=== PATIENT | female | born 1985 | race Caucasian/White ===

== ENCOUNTER 2023-06-28 17:08 | Emergency (ER) | payer OTHER, MEDICAID, SELFPAY ==
[2023-06-28 17:45] VITALS: BP 140/85; PULSE 104; RESP 18; TEMP 36.7; O2SAT 99; BMI 32.8
--- NOTE | 2023-06-28 18:09 | ED.GENADULT ---
HPI - General Adult <Bre Mott PA-C - Last Filed: 06/29/23 14:00> General Chief complaint: Hypertension Stated complaint: doesn't feel right, High Blood Pressure Time Seen by Provider: 06/28/23 17:58 Source: patient and family Mode of arrival: Wheelchair History of Present Illness HPI narrative: Patient is a 38-year-old female, currently vapes, with multiple medical problems who presents due to chief complaint of I don't feel right and concern for high blood pressure. Patient also complains of palpitations. She took 1 mg clonazepam prior to arrival in the emergency room. Feels like I am drunk but I am not. Complains of back pain worsened by a recent disability exam, a lot of poking and prodding. Reports a fall 2 days ago, states I am a high fall risk. Did not her hit her head. Also complains of left elbow pain, onset tonight, without preceding insult. No redness or swelling of the elbow per patient report. Patient reports medical history occluding TBI, sclerosis, scoliosis, arthritis, hearing impairment, pericarditis, asthma, PTSD. She is accompanied by her significant other. Related Data Allergies Allergy/AdvReac Type Severity Reaction Status Date / Time aspartame Allergy Seizure Verified 06/28/23 17:45 oxycodone Allergy Hallucinati Verified 06/28/23 17:45 ng soy Allergy Anaphylaxis Verified 06/28/23 17:45 sucralose Allergy Seizure Verified 06/28/23 17:45 Sulfa (Sulfonamide Allergy Anaphylaxis Verified 06/28/23 17:45 Antibiotics) topiramate [From Topamax] Allergy Seizure Verified 06/28/23 17:45 adhesive AdvReac skin Verified 06/28/23 17:45 irritation clindamycin AdvReac Hives Verified 06/28/23 17:45 codeine AdvReac Hives Verified 06/28/23 17:45 eszopiclone [From Lunesta] AdvReac Sleepwalkin Verified 06/28/23 17:45 g hydrocodone AdvReac Migraine Verified 06/28/23 17:45 latex AdvReac Hives Verified 06/28/23 17:45 Review of Systems <Bre Mott PA-C - Last Filed: 06/29/23 14:00> Review of Systems ROS Unobtainable: All systems reviewed & are unremarkable except as noted in HPI and below Patient History <Bre Mott PA-C - Last Filed: 06/29/23 14:00> Social History Smoking Status: Former smoker Smoking Status: Former smoker tobacco type: vaping Substance Use Type: does not use Exam <Bre Mott PA-C - Last Filed: 06/29/23 14:00> Narrative Exam Narrative: GENERAL: 38 year old patient appears stated age. Well-developed patient, in no acute distress. NEURO: Alert and oriented x3, flat affect, normal speech, normal cognition. CN's (II-XII) grossly intact,. No gross motor deficit, 5/5 strength throughout, no gross sensory loss, normal movement. HEAD: Atraumatic. Normocephalic. EYES: Pupils equal round and reactive. Extraocular motions intact. No scleral icterus. No injection or drainage. ENT: Nose without bleeding or purulent drainage. Airway patent. CARDIOVASCULAR: Regular rate and rhythm without murmurs, gallops, or rubs. RESPIRATORY: Clear to auscultation. Breath sounds equal bilaterally. No wheezes, rales, or rhonchi. EXTREMITIES: No edema or joint tenderness. BACK/SPINE: No midline tenderness, states pain over right thoracic spine and left low thoracic/high upper lumbar spine SKIN: No rash or erythema of visible areas Initial Vital Signs Initial Vital Signs: Vital Signs Temperature 98.1 F 06/28/23 17:45 Pulse Rate 104 H 06/28/23 17:45 Respiratory Rate 18 06/28/23 17:45 Blood Pressure 140/85 06/28/23 17:45 Pulse Oximetry 99 06/28/23 17:45 Oxygen Delivery Method Room Air 06/28/23 17:45 <Shruthi Duron MD - Last Filed: 06/29/23 18:51> Initial Vital Signs Initial Vital Signs: Vital Signs Temperature 98.1 F 06/28/23 17:45 Pulse Rate 104 H 06/28/23 17:45 Respiratory Rate 18 06/28/23 17:45 Blood Pressure 140/85 06/28/23 17:45 Pulse Oximetry 99 06/28/23 17:45 Oxygen Delivery Method Room Air 06/28/23 17:45 Course <Bre Mott PA-C - Last Filed: 06/29/23 14:00> Orders Ordered: ED Orders 06/28/23 18:19 XR thoracic spine 3V Stat EKG-12 Lead Stat Vital Signs Vital signs: Vital Signs - 8 hr 06/28/23 17:45 Temperature 98.1 F Pulse Rate 104 H Respiratory Rate 18 Blood Pressure 140/85 Pulse Oximetry 99 Oxygen Delivery Method Room Air <Shruthi Duron MD - Last Filed: 06/29/23 18:51> Orders Ordered: ED Orders 06/28/23 18:19 XR thoracic spine 3V Stat EKG-12 Lead Stat Vital Signs Vital signs: Vital Signs - 8 hr 06/28/23 17:45 Temperature 98.1 F Pulse Rate 104 H Respiratory Rate 18 Blood Pressure 140/85 Pulse Oximetry 99 Oxygen Delivery Method Room Air Medical Decision Making <Bre Mott PA-C - Last Filed: 06/29/23 14:00> Imaging Data Extremity x-ray #1: Radiologist's Impression: PROCEDURE: XR THORACIC SPINE 3V INDICATIONS: thoracic back pain TECHNIQUE: 3 views of the thoracic spine were acquired. COMPARISON: None. FINDINGS: Bones: No fractures or dislocations. No suspicious bony lesions. 12 pairs of ribs are noted, and appear intact where visualized. Soft tissues: No paravertebral stripe thickening. IMPRESSION: No acute bony abnormality. Dictated by: Dickson Ríos M.D. on 06/28/2023 at 19:19 Approved by: Dickson Ríos M.D. on 06/28/2023 at 19:19 ECG Data Interpretation: Normal sinus rhythm, rate 82, MN 178, QRS 96, QT 366, no ST abnormalities. MDM Narrative Medical decision making narrative: Multiple etiologies for patient's symptoms considered including, but not limited to: Abnormal cardiac rhythm, thoracic spine injury, elbow injury including bursitis, septic joint Patient has multiple concerns today and has a complex medical history with multiple evaluations in the emergency department for chest pain over the last several months and awaiting a cardiology referral from primary care. Her vital signs are within normal limits today and she does not appear ill. EKG is normal and I do not hear a murmur upon auscultation. She is complaining of back pain that is new after a fall; there is no evidence of fracture on x-ray. Also complaining of acute onset elbow pain; there is no overlying erythema, edema or warmth suspicious for septic joint or bursitis. Patient's chief complaint is that she generally feels unwell; perhaps she is coming down with a viral illness. She states she feels drunk but isn't; she did just take 1 mg of clonazepam before arriving so perhaps this is impacting the way she feels. Blood pressure is slightly elevated; patient does not complain of headache, chest pain or blurry vision. Doubt hypertensive urgency or emergency. Described that the best way to diagnose and manage hypertension is with a primary care provider over time. There is no indication for urgent lowering of her blood pressure today. No indication for further laboratory tests or studies today. Encouraged patient to establish primary care to manage chronic diagnoses and ongoing problems. Patient's symptoms improved over duration of stay with above-stated therapies. Findings and discharge diagnosis discussed with patient/family followed by verbalization of understanding Return precautions discussed with patient/family whom verbalize understanding of diagnosis and plan Discharge Plan Departure Patient Disposition: Home Clinical Impression: Back pain Qualifiers: Back pain location: thoracic back pain Chronicity: chronic Back pain laterality: bilateral Qualified Code(s): M54.6 - Pain in thoracic spine Instructions: DI for High Blood Pressure, DI for Thoracic Back Pain Activity Restrictions/Additional Instructions: * we did not find anything on your x-ray or your EKG today that would explain your current symptoms. Your vital signs are reassuring. 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 You can call the number below and see if you can establish care at [facility] now that you are living in [place]. Please return if you have new or worsening symptoms. *What to do: *Please continue to take your regular medications as directed. [ ] New medication prescriptions sent to your pharmacy: [ ] [ ] New medication written as a paper prescription [x] No new medications given *Please follow up with your primary care provider in 2-3 days, call for an appointment. Let them know you were seen in the Emergency Department and that we ask that you be seen in follow up. We will electronically transmit a record of today's note if your PCP is in our system *If you do not have a primary care provider please contact the [facility] Resource line at [phone]. They will ask some questions about your medical history and help get you set up with a doctor in the community. *Return to Emergency Department if you should have any new, worsening or concerning symptoms, such as [fever greater than 101 F, shaking chills, worsening pain, persistent vomiting or other concerning symptoms]. Referrals: Miscellaneous,DoctorMD [Primary Care Provider] - Stand Alone Forms: Patient Portal/API ED Sign-out <Shruthi Duron MD - Last Filed: 06/29/23 18:51> Cosign ED Attending Coskeanuature Attestation: I was immediately available in the department for consultation throughout this patient's visit. Shruthi Duron MD
--- NOTE | 2023-06-28 18:19 | DI.RAD.S_ITS ---
PROCEDURE: XR THORACIC SPINE 3V INDICATIONS: thoracic back pain TECHNIQUE: 3 views of the thoracic spine were acquired. COMPARISON: None. FINDINGS: Bones: No fractures or dislocations. No suspicious bony lesions. 12 pairs of ribs are noted, and appear intact where visualized. Soft tissues: No paravertebral stripe thickening. IMPRESSION: No acute bony abnormality. Dictated by: Dickson Ríos M.D. on 06/28/2023 at 19:19 Approved by: Dickson Ríos M.D. on 06/28/2023 at 19:19
[2023-06-28 19:49] VITALS: BP 138/83; PULSE 83; RESP 18; TEMP 36.8; O2SAT 97
== END 2023-06-28 19:51 | disposition home or self-care (01) ==
PROVIDERS: Emergency Provider Physician Assistant
DX: M54.6 Pain in thoracic spine (principal); I10 Essential (primary) hypertension; R00.2 Palpitations
CPT/HCPCS: 72072; 93005; 99283; 99284

== ENCOUNTER 2023-10-14 22:26 | Emergency (ER) | payer OTHER, MEDICAID, SELFPAY ==
[2023-10-14 22:53] VITALS: BP 146/90; PULSE 97; RESP 18; TEMP 36.7; O2SAT 100; BMI 35.3
--- NOTE | 2023-10-14 22:55 | DI.RAD.S_ITS ---
PROCEDURE: XR WRIST RT MIN 3V INDICATIONS: Twisted wrist, having pain TECHNIQUE: 3 views of the wrist were acquired. COMPARISON: None. FINDINGS: Bones: No fractures or dislocations. No suspicious bony lesions. Soft tissues: No suspicious soft tissue calcifications. IMPRESSION: No acute bony abnormality. If symptoms persist with conservative management, consider cross-sectional imaging such as CT or MRI. Approved by: Celine Bustillo M.D.,Ph.D. on 10/15/2023 at 0:59
--- NOTE | 2023-10-14 23:27 | ED.UPPEXIN ---
HPI - Extremity Injury (Upper) General Chief Complaint: Extremity Injury, Upper Stated Complaint: rt wrist inj Time Seen by Provider: 10/14/23 23:20 Source: patient Mode of arrival: Ambulatory History of Present Illness HPI narrative: Patient is a 38-year-old female presents today with right wrist pain. She reports that she pushed up from getting up from the couch and felt her wrist twist in pain she feels like might be broken. She reports that she has broken bones like fingers and thinks from getting up from couch previously. She has significant pain on the ulnar side she feels like she is sharp shooting pain at times. She took acetaminophen and meloxicam prior to arrival she is allergic to many medications. Patient reports that she has previously had suicidal thoughts but is not suicidal today has no plan harming herself she does suffer from depression and anxiety and agoraphobia Related Data Allergies Allergy/AdvReac Type Severity Reaction Status Date / Time aspartame Allergy Seizure Verified 06/28/23 17:45 oxycodone Allergy Hallucinati Verified 06/28/23 17:45 ng soy Allergy Anaphylaxis Verified 06/28/23 17:45 sucralose Allergy Seizure Verified 06/28/23 17:45 Sulfa (Sulfonamide Allergy Anaphylaxis Verified 06/28/23 17:45 Antibiotics) topiramate [From Topamax] Allergy Seizure Verified 06/28/23 17:45 adhesive AdvReac skin Verified 06/28/23 17:45 irritation clindamycin AdvReac Hives Verified 06/28/23 17:45 codeine AdvReac Hives Verified 06/28/23 17:45 eszopiclone [From Lunesta] AdvReac Sleepwalkin Verified 06/28/23 17:45 g hydrocodone AdvReac Migraine Verified 06/28/23 17:45 latex AdvReac Hives Verified 06/28/23 17:45 Patient History Social History Smoking Status: Former smoker Smoking Status: Former smoker tobacco type: vaping Substance Use Type: does not use Exam Initial Vital Signs Initial Vital Signs: Vital Signs Temperature 98.1 F 10/14/23 22:53 Pulse Rate 97 H 10/14/23 22:53 Respiratory Rate 18 10/14/23 22:53 Blood Pressure 146/90 H 10/14/23 22:53 Pulse Oximetry 100 10/14/23 22:53 Oxygen Delivery Method Room Air 10/14/23 22:53 GENERAL: Tearful 38-year-old female CARDIOVASCULAR: peripheral pulses in tact, cap refill <2 sec RESPIRATORY: No respiratory distress, speaks in full sentences without difficulty EXTREMITIES: Normal range of motion, no clubbing or edema. Neurovascularly intact Right upper extremity swollen so radial pulse intact radial median able flex and extend wrist bony deformity NEUROLOGICAL: Cranial nerves II through XII grossly intact. Normal gait and speech. SKIN: Warm, dry, no petechiae, no rashes or lesions. Course Orders Ordered: ED Orders 10/14/23 22:55 XR wrist RT min 3V Stat Vital Signs Vital signs: Vital Signs - 8 hr 10/14/23 22:53 10/15/23 01:21 Temperature 98.1 F Pulse Rate 97 H 87 Respiratory Rate 18 18 Blood Pressure 146/90 H 140/80 Pulse Oximetry 100 98 Oxygen Delivery Method Room Air Room Air MDM - Extremity Injury (Upper) Imaging Data Extremity x-ray #1: Radiologist's Impression: PROCEDURE: XR WRIST RT MIN 3V INDICATIONS: Twisted wrist, having pain TECHNIQUE: 3 views of the wrist were acquired. COMPARISON: None. FINDINGS: Bones: No fractures or dislocations. No suspicious bony lesions. Soft tissues: No suspicious soft tissue calcifications. IMPRESSION: No acute bony abnormality. If symptoms persist with conservative management, consider cross-sectional imaging such as CT or MRI. Approved by: Celine Bustillo M.D.,Ph.D. on 10/15/2023 at 0:59 MDM Narrative Medical decision making narrative: Patient is a 38-year-old female presenting with right wrist pain. She does not have significant mechanism for fracture her x-ray is negative for fracture she does have some swelling. Neurovascularly intact she is actually able to flex and extend wrist but it is painful. She is multiple allergies to medications she took her pain meds at home prior to arrival she has given a Velcro wrist splint Discharge Plan Departure Patient Disposition: Home Clinical Impression: Sprain and strain of wrist Instructions: DI for Wrist Sprain Activity Restrictions/Additional Instructions: *You have been diagnosed with right wrist sprain *What to do: At this time wear wrist splint as needed elevate and ice. *Continue to take medications as directed *Follow up with your primary care provider in 2-3 days or call [phone] *Return to ER if you should have increasing pain and swelling or any new, worsening or concerning symptoms Referrals: Miscellaneous,Doctor, MD [Primary Care Provider] - Stand Alone Forms: Patient Portal/API
[2023-10-15 01:21] VITALS: BP 140/80; PULSE 87; RESP 18; O2SAT 98
== END 2023-10-15 01:22 | disposition home or self-care (01) ==
PROVIDERS: Emergency Provider Emergency Medicine
DX: S63.501A Unspecified sprain of right wrist, initial encounter (principal); S66.911A Strain of unspecified muscle, fascia and tendon at wrist and hand level, right hand, initial encounter; X50.1XXA Overexertion from prolonged static or awkward postures, initial encounter
CPT/HCPCS: 73110; 99281; 99283

== ENCOUNTER → 2023-11-29 14:15 | Outpatient (CLI) | payer OTHER, MEDICAID, SELFPAY ==
[2023-11-29 15:01] LABS: Add Manual Diff / Slide Review NO; Basophils Absolute Auto 0 /uL (0-100); Basophils Percent Auto 0.4 % (0-2); Eosinophils Absolute Auto 200 /uL (0-450); Eosinophils Percent Auto 2.8 % (2-4); Hematocrit 41.4 % (36-46); Hemoglobin 14.1 g/dL (12.0-16.0); Lymphocytes Absolute Auto 1600 /uL (1100-4500); Lymphocytes Percent Auto 26.4 % (25-40); Mean Corpuscular HGB Conc 34.1 % (30-36); Mean Corpuscular Hemoglobin 27.9 PG (26-34); Mean Corpuscular Volume 81.8 fL (80-100); Monocytes Absolute Auto 500 /uL (0-900); Monocytes Percent Auto 7.7 % (3-14); Neutrophils Absolute Auto 3700 /uL (1500-7000); Neutrophils Percent Auto 62.7 % (50-75); Platelet Count 395 X10^3/uL (150-400); Red Blood Cell Count 5.06 X10^6/uL (4.0-5.2); Red Cell Distribution Width 14.9 % (11.6-14.8)
[2023-11-29 15:05] LABS: Hemoglobin A1C% w Est Avg Glu 5.2 % (4.0-6.0)
[2023-11-29 15:21] LABS: Alanine Aminotransferase 33 IU/L (<35); Albumin 4.3 g/dL (3.5-5.0); Albumin Globulin Ratio 1.5 (1.0-2.8); Alkaline Phosphatase 68 U/L (38-126); Aspartate Aminotransferase 25 IU/L (14-36); BUN Creatinine Ratio 21.8 (6-22); Bilirubin Total 0.7 mg/dL (0.2-1.3); Blood Urea Nitrogen 19 mg/dL (7-17); Carbon Dioxide 23 mmol/L (22-32); Chloride 107 mmol/L (98-107); Cholesterol 262 mg/dL (140-199); Estimated Glomerular Filt Rate > 60 mL/min (>60); Globulin 2.8 g/dL (1.7-4.1); Glucose 102 mg/dL (70-100); HDL Cholesterol 53 mg/dL (40-60); HEMOLYSIS < 15 (0-50); LDL Cholesterol Calculated 175 mg/dL (<100); Potassium 4.3 mmol/L (3.4-5.1); Sodium 137 mmol/L (137-145); Total Protein 7.1 g/dL (6.3-8.2); Triglycerides 169 mg/dL (35-150)
[2023-11-29 15:53] LABS: TSH w/ Reflex to FT4 1.16 uIU/mL (0.47-4.68)
== END ==
PROVIDERS: PCP Family Medicine; Referring Provider Family Medicine; Visit Provider Family Medicine
DX: Z13.6 Encounter for screening for cardiovascular disorders (principal); F32.9 Major depressive disorder, single episode, unspecified; F41.1 Generalized anxiety disorder; E66.9 Obesity, unspecified
CPT/HCPCS: 36415; 80053; 80061; 83036; 84443; 85025

== ENCOUNTER → 2023-11-29 15:44 | Outpatient (CLI) | payer OTHER, MEDICAID, SELFPAY ==
--- NOTE | 2023-12-02 12:05 | DIET.OUTPTC ---
Dietary Outpatient Consultation Note Consultation Date: 11/29/2023 Assessment: 38 y F referred to dietitian for obesity. Bridget has attempted weight lost diets in past with restricted calorie intake. Pt reports severely low intakes <1000-800 kcals/day or days without eating, which resulted in no weight loss. Reports time in past when they were starved for ~2 yrs. Reports lack of appetite pt correlates with medications. Pt is frustrated about lack of weight loss. Negative self talk. Reports working with therapist to overcome this. Strongly desires weight loss medication. Is taking over the counter weight loss medication. Has difficulties affording food. Has SNAP benefits. Reports allergy to soy, which makes them unable to use foods provided at [facility]. Reviewed common foods provided at [facility] that do not have soy. Diet recall: B-skips or chocolate protein shake L-skips D-rice and vegetables Water >60 oz Physical activity: movement is painful Labs 11/29/23: A1c: 5.2% TG 169 Chol 262 LDL 175 HDL 53 Ht: 5 ft 3 in Wt: 200 lb 2 oz BMI: 35.4 Nutrition Diagnosis: Inadequate energy intake r/t nutrition related knowledge deficit and lack of appetite as evidenced by diet recall and pt report Interventions: 1. Increased energy/protein intake with consistent meals and snacks -3 meals +2 snacks a day, beginning with having breakfast and lunch consistently -Educ on re-establishing hunger cues -Educ on low cost, nutrient/protein dense foods options to help manage provisions provided through [employer] -Reviewed components of balanced meal 3. Coordination of care w/ therapist for negative self talk -Used TX and reinforced method therapist has been working with pt on (per pt report) - awareness and challenging negative self-talk Goals: 1. 3 meals a day, +snacks - (options include those available/realistic for pt) B-protein shake with milk, fruit and pb L-overnight oatmeal and thai yogurt and fruit or potato and meat D-carb+veg+protein s-fruit, cheese, eggs 2. Challenge negative self talk, continued work with therapist Discussed with patient importance of achieving consistent, sufficient meals and snacks. Monitoring/Evaluations: diet recall, goals Electronically Signed by: Meenu Washington 12/02/23 12:05 Clinical Dietitian [address] [address]
== END ==
PROVIDERS: PCP Family Medicine; Referring Provider Family Medicine
DX: E66.9 Obesity, unspecified (principal); Z71.3 Dietary counseling and surveillance; Z68.35 Body mass index [BMI] 35.0-35.9, adult
CPT/HCPCS: 97802

== ENCOUNTER → 2023-12-29 15:00 | Outpatient (CLI) | payer OTHER, MEDICAID, SELFPAY ==
--- NOTE | 2023-12-30 15:39 | DIET.PN1 ---
Dietary Progress Note Assessment: 38 y referred to dietitian for obesity. Nutrition f/u. Appt done on 12/29/23 through telehealth. Pt used assistance of close captioning. Pt is now consuming adequate intake daily. With help of partner, has had 2 protein drinks and 2 meals per day in the last month. Strongly desires to start a weight loss medication. I encouraged them to discuss medications with their PCP to explore options. Has had many previous attempts of using nutrition and activity to try to achieve weight loss with no significant, lasting results. Expresses frustration. Diet recall: Homemade protein drink 2x/day 2 meals per day of eggs/starch/veg or potato, greenlandic yogurt, turkey tobar, fruit or overnight oats and sides Interventions: -Reviewed balanced meals, using plate method, fiber/fiber sources, macros -Provided list of [facility]/resources via email. Pt confirmed they received email. -Continue to work with therapist EER: 25-28 g fiber/d Monitoring/Evaluations: diet recall, start of weight loss med as recc by PCP, f/u end of Jan after PCP visit Electronically Signed by: Meenu Washington 12/30/23 15:39 Clinical Dietitian [address] [address]
== END ==
PROVIDERS: PCP Family Medicine; Referring Provider Family Medicine
DX: E66.9 Obesity, unspecified (principal); Z71.3 Dietary counseling and surveillance
CPT/HCPCS: 97803

== ENCOUNTER → 2024-02-23 13:37 | Outpatient (CLI) | payer OTHER, MEDICAID, SELFPAY ==
--- NOTE | 2024-02-23 13:38 | DI.US.S_ITS ---
PROCEDURE: US PELVIC COMPLETE INDICATIONS: POLYCYSTIC OVARIAN SYNDROME TECHNIQUE: Real-time scanning was performed of the pelvic organs, with image documentation. Additional endovaginal scanning was necessary due to incomplete visualization of the adnexal and endometrial structures by transabdominal scanning. COMPARISON: [facility], US, US PELVIC COMPLETE, 12/08/2022, 15:08. FINDINGS: Uterus: Surgically absent. Some remaining midline tissue is noted with increased vascularity. Ovaries: The right ovary measures 4.1 x 3.9 x 2.1 cm, with a calculated ovarian volume of 17.2 cc. The left ovary measures 4.5 x 3.1 x 3.2 cm, with a calculated ovarian volume of 22.7 cc. Complex left ovarian cystic structure with peripheral vascularity measuring 2.8 x 2.1 x 1.5 cm. Normal flow is seen to the bilateral ovaries. Greater than 12 follicles can be seen in each ovary. No adnexal masses are seen. Other: No pathologic free abdominal or pelvic fluid. IMPRESSION: 1. Status post hysterectomy. Some tissues noted midline, may represent residual tissue with increased vascularity. 2. Complex left ovarian cystic structure with peripheral vascularity measuring 2.8 cm. Recommend follow-up ultrasound in 6-12 weeks. 3. Prominent ovarian size bilaterally with greater than 12 follicles, consistent with history of polycystic ovarian syndrome. We strive to produce accurate, complete, and clear reports of imaging services. To assist us in improving patient care, this report was composed using standard report templates and voice recognition software. Therefore, it may contain abnormal punctuation, insertions and/or omissions. Occasional wrong-word or sound-alike substitutions may occur. Though we review the report and make efforts to correct it, we do recommend that the report be read carefully in proper context to recognize any text inaccuracies. Dictated by: Abimael Kaufman M.D. on 02/23/2024 at 16:03 Approved by: Abimael Kaufman M.D. on 02/23/2024 at 16:07
== END ==
LOC: US 13:38
PROVIDERS: PCP Family Medicine; Referring Provider Family Medicine; Visit Provider Family Medicine
DX: E28.2 Polycystic ovarian syndrome (principal); Z90.710 Acquired absence of both cervix and uterus
CPT/HCPCS: 76830; 76856; 93975

== ENCOUNTER → 2024-02-28 15:00 | Outpatient (CLI) | payer MEDICARE, MEDICAID, SELFPAY ==
--- NOTE | 2024-03-01 08:41 | DIET.OUTPTC ---
Dietary Outpatient Consultation Note Consultation Date: 02/28/2024 Assessment: 38 y referred to dietitian for obesity. Nutrition f/u. Appt done on 12/29/23 through telehealth. Continues to work towards having multiple meals per day over 1 or no intake. Difficult sometimes d/t lack of appetite. Unable to start weight loss medication like they wanted. Reports they have had hypoglycemia since they were 16 yrs old. Has symptoms of shakes/sweats 30-60 minutes after eating. Drinks a protein shake when hypoglycemic. Has BG meter. Wonders if they are drinking too much water. Drinks 120 oz/day + 1-2 16 oz energy drinks + protein drinks Diet recall: Homemade protein drink 2x/day 2 meals per day of eggs/starch/veg or potato, chinese yogurt, turkey tobar, fruit or overnight oats and sides Nutrition diagnosis: Nutrition related knowledge deficit r/t limited previous nutrition educ on managing hypoglycemia aeb pt report Interventions: -Discussed management for hypoglycemia including the following: treating w/ rule of 15s, normal BG, small freq meals as able with CHO+protein+fiber source, assessing CHO in meals and aiming for 30-45 g CHO (i.e. baseball size of rice/potatoes, 2 sl toast) at meals and 15-30 g CHO at snacks with protein source, fiber, and healthy fat -Discussed fluid intake and needs EER: 25-28 g fiber/d, 90-115 oz fluids based on jamey segar equation compared with 35 mL/kg Monitoring/Evaluations: diet recall, BG, understanding of hypoglycemic treatment Electronically Signed by: Meenu Washington 03/01/24 08:41 Clinical Dietitian [address] [id number]
== END ==
PROVIDERS: PCP Family Medicine; Referring Provider Family Medicine
DX: E66.9 Obesity, unspecified (principal); E16.2 Hypoglycemia, unspecified; Z71.3 Dietary counseling and surveillance; Z68.35 Body mass index [BMI] 35.0-35.9, adult
CPT/HCPCS: 97803

== ENCOUNTER → 2024-03-20 11:27 | Outpatient (CLI) | payer MEDICARE, MEDICAID, SELFPAY ==
[2024-03-20 12:49] LABS: Luteinizing Hormone 10.1 mIU/mL
[2024-03-20 12:55] LABS: Testosterone 66.1 ng/dL (5.71-77.0)
[2024-03-20 13:05] LABS: Estradiol, Total 53.7 pg/mL
[2024-03-30 18:08] LABS: Anti Mullerian Hormone 22.5 ng/mL (.)
== END ==
PROVIDERS: PCP Family Medicine; Referring Provider Student in an Organized Health Care Education/Training Program; Visit Provider Student in an Organized Health Care Education/Training Program
DX: E28.2 Polycystic ovarian syndrome (principal)
CPT/HCPCS: 36415; 82397; 82670; 83001; 83002; 84403

== ENCOUNTER → 2024-05-09 15:36 | Outpatient (CLI) | payer MEDICARE, MEDICAID, SELFPAY ==
--- NOTE | 2024-05-09 15:37 | DI.US.S_ITS ---
PROCEDURE: US PELVIC COMPLETE INDICATIONS: FOLLOW UP 6-12 WEEK ULTRASOUND TECHNIQUE: Real-time scanning was performed of the pelvic organs, with image documentation. Additional endovaginal scanning was necessary due to incomplete visualization of the adnexal and endometrial structures by transabdominal scanning. COMPARISON: [facility], US, US PELVIC COMPLETE, 02/23/2024, 13:53. FINDINGS: Uterus: Hysterectomy. Hypervascularity is seen in the remaining vaginal cuff tissue, nonspecific. Ovaries: Enlarged bilateral ovary measuring 29 cc on the right and 17 cc on the left. There are greater than 20 follicles per ovary. Other: No pathologic free fluid. IMPRESSION: Enlarged bilateral ovaries with greater than 20 follicles each. This is sometimes seen with polycystic ovarian syndrome, depending on clinical and laboratory context. Nonspecific hypervascularity seen in the remaining vaginal cuff tissue. Patient is status post hysterectomy. Dictated by: Umair Brian M.D. on 05/10/2024 at 11:04 Approved by: Umair Brian M.D. on 05/10/2024 at 11:06
== END ==
LOC: US 15:37
PROVIDERS: PCP Family Medicine; Referring Provider Family Medicine; Visit Provider Family Medicine
DX: N83.202 Unspecified ovarian cyst, left side (principal); N83.8 Other noninflammatory disorders of ovary, fallopian tube and broad ligament; Z90.710 Acquired absence of both cervix and uterus
CPT/HCPCS: 76830; 76856

== ENCOUNTER → 2024-06-14 11:47 | Outpatient (CLI) | payer MEDICARE, MEDICAID, SELFPAY ==
--- NOTE | 2024-06-14 11:49 | DI.MG.S_ITS ---
BILATERAL DIGITAL DIAGNOSTIC MAMMOGRAM 3D/2D: 06/14/2024 CLINICAL: Bilateral Breast Pain. Comparison is made to exams dated: 12/11/2018 mammogram - [facility] and 01/11/2022 mammogram - [facility]. There are scattered areas of fibroglandular density (category b / 25%-50% glandular tissue). No significant masses, calcifications, or other findings are seen in either breast. IMPRESSION: NEGATIVE There is no abnormality seen in the left breast to correspond with the area of clinical concern described as diffuse pain, however, recommend clinical follow up for persistent or worsening symptoms, or development of any clinically suspicious findings. There is no mammographic evidence of malignancy. Recommend initiating routine screening mammograms at age 40. Additionally, patient has an elevated lifetime risk for breast cancer of greater than 20%. Recommend consideration for screening breast MRI as an adjunct to screening mammography. Findings and recommendations were conveyed to the patient during today's evaluation. Based on Tyrer-Cuzick model (a risk assessment model), the patient's lifetime risk is 53.1% and her 10 year risk is 17.6%. If a patient has an elevated risk, a more comprehensive evaluation should be considered and/or a referral to a genetic counselor. The [employer] [employer], [employer], and NCCN Guidelines advise the consideration of Breast MRI as an adjunct to screening mammography in patients whose Lifetime risk to develop breast cancer is 20% or higher. This exam was interpreted at Station ID: [id number]. NOTE: For mammograms, a report in lay terms will be sent to the patient. Approximately 15% of breast malignancies will not be visualized mammographically. In the management of a palpable breast mass, a negative mammogram must not discourage biopsy of a clinically suspicious lesion. Electronically Signed By: Dickson Ríos M.D. aty/:06/14/2024 13:08:09 letter sent: Clinical Evaluation ACR BI-RADS Category 1: Negative
== END ==
PROVIDERS: PCP Family Medicine; Referring Provider Student in an Organized Health Care Education/Training Program; Visit Provider Student in an Organized Health Care Education/Training Program
DX: N64.4 Mastodynia (principal)
CPT/HCPCS: 77066; G0279

== ENCOUNTER → 2024-09-05 15:14 | Outpatient (CLI) | payer MEDICARE, MEDICAID, SELFPAY ==
--- NOTE | 2024-09-05 15:24 | DI.NM.S_ITS ---
PROCEDURE: NM EXERCISE TREADMILL NON NUC COMPARISON: None. INDICATIONS: CP/HTN FINDINGS: The patient exercised for 3 minutes and 54 seconds reaching 86% of maximum predicted heart rate. Appropriate BP response to exercise. Severely reduced exercise capacity (7METS, CRYSTAL +55%). Patient had 4/10 chest pain at rest that worsened to 7/10 with max exercise. No ST changes and no ectopy present during exercise or recovery. IMPRESSION: Low risk, normal study from inducible ischemia standpoint. Non-diagnostic chest pain at rest that worsened with exercise. Severely reduced exercise tolerance (CRYSTAL +55%). Dictated by: Rober Miller MD on 09/06/2024 at 15:10 Approved by: Rober Miller MD on 09/06/2024 at 15:13
== END ==
LOC: NUCM 15:16
PROVIDERS: PCP Family Medicine; Referring Provider Family Medicine; Visit Provider Family Medicine
DX: R07.9 Chest pain, unspecified (principal); I10 Essential (primary) hypertension
CPT/HCPCS: 93017

== ENCOUNTER → 2024-09-12 15:08 | Outpatient (CLI) | payer MEDICARE, MEDICAID, SELFPAY ==
--- NOTE | 2024-09-12 15:10 | DI.MRI.S_ITS ---
PROCEDURE: MR HEAD/BRAIN WO CON INDICATIONS: Frequent headaches TECHNIQUE: Noncontrast axial T1 spin echo, axial T2 fast spin echo, sagittal and axial FLAIR, coronal T2 fast spin echo, axial gradient echo, axial diffusion and ADC through the brain. COMPARISON: None. FINDINGS: Image quality: Excellent. CSF Spaces: Basal cisterns are patent. No extra-axial fluid collections. Ventricles are normal in size and shape. Brain: No intracranial masses or hemorrhage. Jung/white matter interface is normal. Brainstem appears normal. Diffusion-weighted images demonstrate no acute infarct. No chronic ischemic insults. Normal intravascular flow voids are present. No abnormal T2 hyperintense white matter lesions can be seen. The cerebellar tonsils demonstrate a normal shape and are not abnormally low lying. Skull and face: Calvarium has normal marrow signal. Orbits appear normal. Sinuses: Sinuses and mastoids are clear. IMPRESSION: Unremarkable intracranial study, without an imaging explanation found for the patient's presenting history of headache. To the limits of this noncontrast study, no findings of intracranial masses or mass effect can be seen. Dictated by: Nas Nicholas M.D. on 09/12/2024 at 17:23 Approved by: Nas Nicholas M.D. on 09/12/2024 at 17:24
--- NOTE | 2024-09-12 15:10 | DI.ECHO.S_ITS ---
[facility] : : [address] : : [place] : : [id number] : : Phone: [phone] Echocardiogram Report + + :Name: YEIMI RDZ Study Date: 09/12/2024 Height: 63 in : :[facility] ReadingLocation: Weight: 208 lb : : Gender: Female BSA: 2.0 m2 : :: 1985 Age: 39 yrs BP: 135/105 mmHg: :Reason For Study: CHEST PAIN, HYPERTENSION, HEADACHES : :Ordering Physician: LARRY, : :RACHAEL Coy Performed By: Storm Alatorre : :Referring: RACHAEL JUAREZ : + + Interpretation Summary PT SENSITIVE TO PROBE PRESSURE DURING EXAM. 1. The left ventricular contractility is borderline. Estimated ejection fraction is 50 to 55%. No segmental wall motion abnormalities. No LVH. No diastolic function. 2. The right ventricular contractility is normal. 3. All cardiac chambers are of normal size. 4. No significant valvular abnormalities. 5. No obvious intracardiac shunts. 6. No obvious intracardiac masses nor thrombi. 7. No hemodynamically significant pericardial effusion. Conclusion: Low normal left ventricular function with no significant valvular abnormalities. When compared with previous echocardiogram, there does appear to be a decline in the left ventricular systolic function. Procedure: A two-dimensional transthoracic echocardiogram with color flow and Doppler was performed. The study quality was technically adequate. Comparison is made with the echocardiogram of 06/02/2023. The patient was in normal sinus rhythm during the exam. Left Ventricle: The left ventricle is normal in size. There is normal left ventricular wall thickness. There is no ventricular septal defect visualized. The ejection fraction is estimated to be 50-55%. There are no focal wall motion abnormalities. Diastolic parameters suggest a relaxation abnormality of the left ventricle, consistent with probable normal filling pressures. Right Ventricle: The right ventricle is normal in size and function. Atria: The left atrial size is normal. Right atrial size is normal. Mitral Valve: The mitral valve leaflets appear normal. There is no evidence of stenosis, fluttering, or prolapse. There is no mitral regurgitation noted. Aortic Valve: The aortic valve is trileaflet. The aortic valve opens well. No aortic regurgitation is present. Tricuspid Valve: The tricuspid valve leaflets are thin and pliable. No tricuspid regurgitation. Pulmonic Valve: The pulmonic valve leaflets are thin and pliable; valve motion is normal. There is no pulmonic valvular regurgitation. Great Vessels: The aortic root is normal size. The dimensions of the ascending aorta are normal. The pulmonary artery is normal size. The inferior vena cava was not visualized. Pericardium/ Pleura There is no pericardial effusion. There is no pleural effusion. MMode/2D Measurements & Calculations LVIDd: 4.3 cm LVOT diam: 2.1 cm LVIDs: 3.1 cm Ao root diam: 3.1 cm FS: 28.2 % asc Aorta Diam: 3.3 cm EPSS: 0.39 cm IVSd: 0.93 cm LVPWd: 0.95 cm LV matthews. diameter/BSA (cm/m^2): 2.2 LV sys. diameter/BSA (cm/m^2): 1.6 LA A2 area: 13.3 cm2 RA long axis: 4.3 cm LA A4 area: 15.4 cm2 RA area: 8.0 cm2 LA length (vol): 5.4 cm RA vol: 12.6 ml LA vol: 32.0 ml RA : 6.4 ml/m2 LA vol index: 16.3 ml/m2 RVD1 (basal): 2.3 cm RVD2 (mid): 1.9 cm TAPSE: 1.6 cm Doppler Measurements & Calculations Ao V2 max: 122.4 cm/sec LVOT Max Frankie: 101.4 cm/sec Ao V2 mean: 90.4 cm/sec LV V1 max P.1 mmHg Ao max P.0 mmHg LV V1 VTI: 19.7 cm Ao mean P.5 mmHg BRAYAN(I,D): 2.7 cm2 Ao V2 VTI: 24.4 cm BRAYAN(V,D): 2.8 cm2 sev ratio: 0.80 BRAYAN indexed to BSA (cm^2/m^2): 1.4 MV E max frankie: 53.9 cm/sec PA V2 max: 97.2 cm/sec MV A max frankie: 75.9 cm/sec PA V2 mean: 69.2 cm/sec MV E/A: 0.71 PA mean P.1 mmHg Med Peak E' Frankie: 5.3 cm/sec PA pr(Accel): 29.3 mmHg E/E' med: 10.1 Lat Peak E' Frankie: 8.0 cm/sec E/E' lat: 6.7 E/e' average: 8.4 MV dec time: 0.17 sec SVLVOT): 66.9 ml Reading Physician:BRODY
== END ==
LOC: MRI 15:09
PROVIDERS: PCP Family Medicine; Referring Provider Family Medicine; Visit Provider Family Medicine
DX: R51.9 Headache, unspecified (principal); R07.9 Chest pain, unspecified
CPT/HCPCS: 70551; 93306

== ENCOUNTER → 2024-11-19 11:53 | Outpatient (CLI) | payer MEDICARE, SELFPAY ==
[2024-11-19 12:39] LABS: Hemoglobin A1C% w Est Avg Glu 5.0 % (4.0-6.0)
[2024-11-19 12:47] LABS: Add Manual Diff / Slide Review NO; Hematocrit 43.5 % (36-46); Hemoglobin 15.0 g/dL (12.0-16.0); Lymphocytes Absolute Auto 3300 /uL (1100-4500); Mean Corpuscular HGB Conc 34.4 % (30-36); Mean Corpuscular Hemoglobin 26.9 PG (26-34); Mean Corpuscular Volume 78.2 fL (80-100); Platelet Count 435 X10^3/uL (150-400)
[2024-11-19 12:54] LABS: Alanine Aminotransferase 74 IU/L (<35); Albumin 4.7 g/dL (3.5-5.0); Albumin Globulin Ratio 1.7 (1.0-2.8); Alkaline Phosphatase 68 U/L (38-126); Blood Urea Nitrogen 10 mg/dL (7-17); Calcium 9.1 mg/dL (8.4-10.2); Carbon Dioxide 25 mmol/L (22-32); Chloride 102 mmol/L (98-107); Cholesterol 262 mg/dL (140-199); Estimated Glomerular Filt Rate > 60 mL/min (>60); Globulin 2.8 g/dL (1.7-4.1); Glucose 102 mg/dL (70-99); HDL Cholesterol 51 mg/dL (40-60); HEMOLYSIS < 15 (0-50); Potassium 3.8 mmol/L (3.4-5.1); Sodium 136 mmol/L (137-145); Total Protein 7.5 g/dL (6.3-8.2); Triglycerides 280 mg/dL (35-150)
[2024-11-19 13:30] LABS: TSH w/ Reflex to FT4 4.60 uIU/mL (0.47-4.68)
== END ==
PROVIDERS: PCP Family Medicine; Referring Provider Family Medicine; Visit Provider Family Medicine
DX: E16.2 Hypoglycemia, unspecified (principal); L50.9 Urticaria, unspecified; E28.2 Polycystic ovarian syndrome
CPT/HCPCS: 36415; 80053; 80061; 83036; 84443; 85025

== ENCOUNTER → 2024-11-26 13:30 | Outpatient (CLI) | payer MEDICARE, SELFPAY | LOC: RESP 12-04 10:33 | PROVIDERS: PCP Family Medicine; Referring Provider Family Medicine; Visit Provider Family Medicine | DX: J45.20 Mild intermittent asthma, uncomplicated (principal); R06.02 Shortness of breath; R07.89 Other chest pain; Z87.891 Personal history of nicotine dependence; R94.2 Abnormal results of pulmonary function studies | CPT/HCPCS: 94060; 94726; 94729 ==

== ENCOUNTER → 2024-11-28 14:08 | Outpatient (CLI) | payer MEDICARE, SELFPAY ==
--- NOTE | 2024-11-28 14:10 | DI.RAD.S_ITS ---
PROCEDURE: FL BARIUM SWALLOW INDICATIONS: difficulty swallowing, painful COMPARISON: None. FINDINGS: Function: There is moderately weakened esophageal peristalsis. No elicited gastroesophageal reflux. No hiatal hernia. Morphology: Single contrast views show no esophageal strictures, extrinsic mass effects, or diverticula. Limited images of the stomach demonstrate normal appearance. IMPRESSION: [id number] esophageal dysmotility. Dictated by: Rachid Shane M.D. on 11/28/2024 at 16:01 Approved by: Rachid Shane M.D. on 11/28/2024 at 16:01
[2024-11-28 16:13] LABS: Ferritin 52 ng/mL (6-137)
== END ==
PROVIDERS: PCP Family Medicine; Visit Provider Radiology Diagnostic Radiology
DX: R71.8 Other abnormality of red blood cells (principal); R13.10 Dysphagia, unspecified; K22.89 Other specified disease of esophagus
CPT/HCPCS: 36415; 74220; 82728

== ENCOUNTER 2025-02-21 23:01 | Emergency (ER) | payer MEDICARE, MEDICAID, SELFPAY ==
[2025-02-21 23:05] VITALS: BP 110/62; PULSE 107; RESP 20; TEMP 36.6; O2SAT 100; BMI 36.6
--- NOTE | 2025-02-21 23:10 | DI.RAD.S_ITS ---
PROCEDURE: XR CHEST 2V INDICATIONS: shortness TECHNIQUE: 2 views of the chest were acquired. COMPARISON: [facility], CR, XR CHEST 1 VIEW, 04/30/2023, 20:28. FINDINGS: Surgical changes and devices: None. Lungs and pleura: Lungs are clear. No pleural effusions or pneumothorax. Mediastinum: Mediastinal contours are normal. Heart size is normal. Bones and chest wall: No suspicious bony abnormalities. Soft tissues appear unremarkable. IMPRESSION: No acute cardiopulmonary abnormality is seen. Dictated by: Sammy Mahajan M.D. on 02/22/2025 at 0:42 Approved by: Sammy Mahajan M.D. on 02/22/2025 at 0:43
--- NOTE | 2025-02-22 01:42 | ED.GENADULT ---
HPI - General Adult General Chief complaint: Shortness of Breath/Dyspnea Stated complaint: SOB x 1 week Time Seen by Provider: 02/22/25 01:27 Source: patient Mode of arrival: Ambulatory History of Present Illness HPI narrative: 39-year-old female who requests history of asthma, for the last 1 week feels more short of breath, refractory to inhaler use. Denies new cough, fevers, chills. No known exposure to persons with COVID or influenza. Has been evaluated by Cardiology for intermittent unexplained chest pain. No chart history of blood clots to legs or lungs noted, not listed to be on blood thinner medications. Related Data Home Medications ?Medication ?Instructions ?Recorded ?Confirmed dextroamphetamine-amphetamine 10 10 mg PO DAILY 10/17/23 11/30/24 mg tablet (Adderall) duloxetine 60 mg capsule,delayed 120 mg PO DAILY 10/17/23 11/30/24 release prazosin 2 mg capsule 4 mg PO BEDTIME 10/17/23 11/30/24 quetiapine 100 mg tablet 100 mg PO DAILY 10/17/23 11/30/24 hydroxyzine pamoate 100 mg capsule 100 mg PO TID 12/23/23 11/30/24 dextroamphetamine-amphetamine ER 1 cap PO DAILY 03/20/24 11/30/24 15 mg 24hr capsule,extend release lamotrigine 25 mg tablet 25 mg PO DAILY 06/01/24 11/30/24 alprazolam 0.5 mg tablet mg PO 11/22/24 11/30/24 Previous Rx's ?Medication ?Instructions ?Recorded albuterol sulfate 90 mcg/actuation 1 inh inhalation ONCE #8.5 grams 10/17/23 aerosol inhaler disabled parking #1 ea 12/23/23 nystatin 100,000 unit/gram topical 1 applic topical TID #30 grams 03/09/24 ointment epinephrine 0.3 mg/0.3 mL 0.3 mg (0.3 mL) IM ONCE PRN 04/04/24 injection, auto-injector anaphylaxis #2 ea albuterol sulfate 0.63 mg/3 mL 0.63 mg (3 mL) inhalation Q6H #75 05/15/24 solution for nebulization mL blood sugar diagnostic (Blood #50 ea 06/05/24 Glucose Test strips) blood-glucose meter (Blood Glucose #1 ea 06/05/24 Monitoring kit) lancets 30 gauge #100 ea 06/05/24 diazepam 2 mg tablet 2 mg PO ONCE PRN anxiety #2 tabs 08/03/24 fluticasone propionate 50 1 spray intranasal BID #16 grams 11/06/24 mcg/actuation nasal spray,suspension omeprazole 20 mg capsule,delayed 20 mg PO DAILY #90 caps 11/29/24 release disabled parking #1 ea 11/30/24 cetirizine 10 mg capsule (Zyrtec) 10 mg PO DAILY PRN allergic 01/01/25 symptoms #30 caps azelastine 137 mcg (0.1 %) nasal 2 spray intranasal BID #30 mL 02/11/25 spray Allergies Allergy/AdvReac Type Severity Reaction Status Date / Time aspartame Allergy Seizure Verified 02/21/25 23:05 oxycodone Allergy Hallucinati Verified 02/21/25 23:05 ng soy Allergy Anaphylaxis Verified 02/21/25 23:05 sucralose Allergy Seizure Verified 02/21/25 23:05 Sulfa (Sulfonamide Allergy Anaphylaxis Verified 02/21/25 23:05 Antibiotics) topiramate (From Topamax) Allergy Seizure Verified 02/21/25 23:05 adhesive AdvReac skin Verified 02/21/25 23:05 irritation clindamycin AdvReac Hives Verified 02/21/25 23:05 codeine AdvReac Hives Verified 02/21/25 23:05 eszopiclone (From Lunesta) AdvReac Sleepwalkin Verified 02/21/25 23:05 g hydrocodone AdvReac Migraine Verified 02/21/25 23:05 latex AdvReac Hives Verified 02/21/25 23:05 Patient History Medical History (Updated 02/22/25 @ 02:49 by Brendon Thomas MD) CHELSEA III (cervical intraepithelial neoplasia III) PCOS (polycystic ovarian syndrome) Obesity (BMI 35.0-39.9 without comorbidity) Sun allergy (~1991) Acne (~1998) Osteoarthritis Depression Anxiety (~1994) Scoliosis Fractures Foot pain (~2018) Chronic back pain (~2011) Ankle pain (~2010) Chicken pox (~1991) Tinnitus Ruptured tympanic membrane History of recurrent ear infection Irritable bowel syndrome (~1998) Hemorrhoid (~2018) Hypoglycemia (~1997) Pericarditis (~2008) Hypertension (~2022) Asthma (~1986) Allergies (~1986) ADHD PTSD (post-traumatic stress disorder) Surgical History (Updated 03/20/24 @ 14:28 by Jessica Philip DO) Anesthesia History of placement of ear tubes (~1987) H/O left knee surgery (~2014) History of cholecystectomy (~2022) History of hysterectomy (~2022) Family History (Updated 10/21/23 @ 19:30 by Theresa Torres) Mother Cancer Stroke Grandfather History of heart disease Grandmother History of heart disease Grandmother Cancer Social History Smoking Status: Former smoker Smoking Status: Former smoker tobacco type: vaping Exam Narrative Exam Narrative: GENERAL: Well-developed patient, in mild distress. HEAD: Atraumatic. Normocephalic. EYES: Pupils equal round and reactive. Extraocular motions intact. No scleral icterus. No injection or drainage. ENT: Nose without bleeding, purulent drainage. Throat without erythema, tonsillar hypertrophy or exudate. Airway patent. NECK: Trachea midline. Non tender CARDIOVASCULAR: Regular rate and rhythm without murmurs, gallops, or rubs. RESPIRATORY: Clear to auscultation. Breath sounds equal bilaterally. No wheezes, rales, or rhonchi. GASTROINTESTINAL: Abdomen soft, non-tender, nondistended. EXTREMITIES: No edema or joint tenderness. BACK: Nontender without deformity or crepitance. No flank tenderness. NEURO: AOx3. Motor functions grossly nonfocal. SKIN: No rash or erythema of visible areas Initial Vital Signs Initial Vital Signs: Vital Signs Temperature 98 F 02/21/25 23:05 Pulse Rate 107 H 02/21/25 23:05 Respiratory Rate 20 02/21/25 23:05 Blood Pressure 110/62 02/21/25 23:05 Pulse Oximetry 100 02/21/25 23:05 Oxygen Delivery Method Room Air 02/21/25 23:05 Course Orders Ordered: ED Orders 02/21/25 23:10 XR chest 2V Stat 02/22/25 02:17 BNP [NT-proBNP (BNP-Adult 18+)] Stat CBC Auto Diff [Complete Blood Count AUTO DIFF] Stat CMP [Comprehensive Metabolic Panel] Stat D Dimer Stat Troponin I Stat 02/22/25 02:47 Covid-19 + FLU A/B + RSV - PCR Stat 02/22/25 04:05 EKG-12 Lead Stat Discontinued Medications Albuterol (Albuterol Hfa Prepack) 1 box MISC DIRECTED ONE Stop: 02/22/25 04:19 Last Admin: 02/22/25 04:29 Dose: 1 box Documented By: JERONIMO Albuterol/Ipratropium (Albuterol/Ipratropium 3 Ml Ampul) 3 ml INH NOW ONE Stop: 02/22/25 02:03 Last Admin: 02/22/25 02:35 Dose: 3 ml Documented By: GOGO Potassium Chloride (Potassium Chloride 20 Meq/15 Ml Udc) 40 meq PO NOW ONE Stop: 02/22/25 02:43 Last Admin: 02/22/25 04:29 Dose: 40 meq Documented By: JERONIMO Vital Signs Vital signs: Vital Signs - 8 hr 02/21/25 23:05 02/22/25 02:38 02/22/25 04:50 Temperature 98 F Pulse Rate 107 H 90 85 Respiratory Rate 20 18 18 Blood Pressure 110/62 112/60 Pulse Oximetry 100 100 96 Oxygen Delivery Method Room Air Room Air Room Air Fraction of Inspired Oxygen 21 Medical Decision Making Lab Data Lab results reviewed: Yes I reviewed the patient's lab results. Lab results narrative: White blood cell count 8400, hemoglobin 14.7, platelets adequate. Glucose 99. Renal function and sodium normal. Slight low carbon dioxide. Potassium 3.2 low. Liver functions normal. Troponin negative unmeasurable. BNP negative unmeasurable. COVID flu RSV negative. D-dimer negative unmeasurable. 02/22/25 02:17 02/22/25 02:17 Labs: Lab Results 02/22/25 02/22/25 Range/Units 02:17 02:47 WBC 8.4 (4.5-11.0) X10^3/uL RBC 5.55 H (4.0-5.2) X10^6/uL Hgb 14.7 (12.0-16.0) g/dL Hct 43.1 (36-46) % MCV 77.7 L (80-100) fL MCH 26.4 (26-34) PG MCHC 34.1 (30-36) % RDW 15.6 H (11.6-14.8) % Plt Count 403 H (150-400) X10^3/uL Neut % (Auto) 49.7 L (50-75) % Lymph % (Auto) 39.7 (25-40) % [place] % (Auto) 8.3 (3-14) % Eos % (Auto) 2.0 (2-4) % Baso % (Auto) 0.3 (0-2) % Neut # (Auto) 4200 (6660-3139) /uL Lymph # (Auto) 3400 (8069-1340) /uL [place] # (Auto) 700 (0-900) /uL Eos # (Auto) 200 (0-450) /uL Baso # (Auto) 0 (0-100) /uL D-Dimer < 215 (<500) ng/ml Sodium 137 (137-145) mmol/L Potassium 3.2 L (3.4-5.1) mmol/L Chloride 106 (98-107) mmol/L Carbon Dioxide 21 L (22-32) mmol/L BUN 14 (7-17) mg/dL Creatinine 0.83 (0.52-1.04) mg/dL Estimated GFR > 60 (>60) mL/min BUN/Creatinine Ratio 16.9 (6-22) Glucose 99 (70-99) mg/dL Calcium 9.8 (8.4-10.2) mg/dL Total Bilirubin 0.4 (0.2-1.3) mg/dL AST 28 (14-36) IU/L ALT 35 H (<35) IU/L Alkaline Phosphatase 72 (38-126) U/L Troponin I < 0.012 (0.01-0.034) ng/mL NT-Pro-B Natriuret Pep < 20 (<125) pg/mL Total Protein 7.3 (6.3-8.2) g/dL Albumin 4.5 (3.5-5.0) g/dL Globulin 2.8 (1.7-4.1) g/dL Albumin/Globulin Ratio 1.6 (1.0-2.8) SARS-CoV-2 (PCR) Negative (Negative) Influenza A (RT-PCR) Flu a negative (NEGATIVE) Influenza B (RT-PCR) Flu b negative (NEGATIVE) RSV (PCR) Negative (Negative) Imaging Data Chest x-ray: Radiologist's Impression: [address] [address] XRay Report Signed Patient: Bridget Phan MR#: [id number] : 1985 Acct:[id number] Age/Sex: 39 / F Date of Service: 02/21/25 Loc: ED Accession Number: [id number] Procedure: XR chest 2V Ordering Provider: Brendon Thomas MD PROCEDURE: XR CHEST 2V INDICATIONS: shortness TECHNIQUE: 2 views of the chest were acquired. COMPARISON: [facility], , XR CHEST 1 VIEW, 04/30/2023, 20:28. FINDINGS: Surgical changes and devices: None. Lungs and pleura: Lungs are clear. No pleural effusions or pneumothorax. Mediastinum: Mediastinal contours are normal. Heart size is normal. Bones and chest wall: No suspicious bony abnormalities. Soft tissues appear unremarkable. IMPRESSION: No acute cardiopulmonary abnormality is seen. Dictated by: Sammy Mahajan M.D. on 02/22/2025 at 0:42 Approved by: Sammy Mahajan M.D. on 02/22/2025 at 0:43 [facility] Narrative Medical decision making narrative: 39-year-old female with intermittent unexplained chest pain evaluated by Cardiology with no specific diagnosis relayed, history of asthma, feels short of breath for the last one week despite inhaler use. Speaks in full sentences, no obvious wheeze or crackles on exam. Normal room air saturation. Screening chest x-ray negative. We will add EKG, labs, D-dimer. Trial of nebulized albuterol/ipratropium. Lab data: White blood cell count 8400, hemoglobin 14.7, platelets adequate. Glucose 99. Renal function and sodium normal. Slight low carbon dioxide. Potassium 3.2 low. Liver functions normal. Troponin negative unmeasurable. BNP negative unmeasurable. COVID flu RSV negative. D-dimer negative unmeasurable. Chest x-ray no acute changes, see radiology report. EKG ordered, patient declined. Trial of nebulized DuoNeb, felt better after breathing treatment. Albuterol inhaler/spacer dispensed, with instruction to use 2 puffs 4 times daily and then as needed. Discharged home with the albuterol and spacer, instructed use 2 puffs 4 times daily and then as needed. Oral potassium repletion of low-level ordered. Consider recheck potassium in follow up. Discharged home with family. Return precautions discussed. Discharge Plan Departure Patient Disposition: Home Clinical Impression: Shortness of breath, Hypokalemia Activity Restrictions/Additional Instructions: Shortness of breath, refractory to home regimen of albuterol. Chest x-ray unremarkable. Lab testing unremarkable. COVID influenza RSV swab negative. Trial of nebulized DuoNeb, symptomatically improved. Dispensed inhaler albuterol with spacer to use 2 puffs 4 times daily for this next 1 week, then as needed. Further workup for now as an outpatient. Recheck symptoms with your regular doctor early next week. Return to this/nearest emergency department for any change worsening symptoms or any concerns prior. Prescriptions: No Action (DME) disabled parking See Rx Instructions .Route .MEDSUPPLY Qty: 1 0RF Rx Instructions: I find this patient to be medically disabled and qualified for disabled parking as indicated and signed on the [employer] disabled parking application for individuals. alprazolam 0.5 mg tablet PO (DME) disabled parking See Rx Instructions .Route .MEDSUPPLY Qty: 1 0RF Rx Instructions: I find this patient to be medically disabled and qualified for disabled parking as indicated and signed on the [employer] disabled parking application for individuals. duloxetine 60 mg capsule,delayed release(DR/EC) 120 mg PO DAILY dextroamphetamine-amphetamine [Adderall] 10 mg tablet 10 mg PO DAILY quetiapine 100 mg tablet 100 mg PO DAILY prazosin 2 mg capsule 4 mg PO BEDTIME albuterol sulfate 90 mcg/actuation HFA aerosol inhaler 1 inh inhalation ONCE Qty: 8.5 3RF hydroxyzine pamoate 100 mg capsule 100 mg PO TID nystatin 100,000 unit/gram ointment 1 applic topical TID Qty: 30 0RF lamotrigine 25 mg tablet 25 mg PO DAILY epinephrine 0.3 mg/0.3 mL auto-injector 0.3 mg IM ONCE PRN (Reason: anaphylaxis) Qty: 2 0RF Rx Instructions: as a single dose; may repeat once albuterol sulfate 0.63 mg/3 mL solution for nebulization 0.63 mg inhalation Q6H Qty: 75 3RF (DME) blood-glucose meter [Blood Glucose Monitoring] Kit See Rx Instructions .Route Qty: 1 0RF Rx Instructions: As directed (DME) Blood Glucose Test Strip See Rx Instructions .Route Qty: 50 0RF Rx Instructions: As directed, to test glucose level once daily (DME) lancets 30 gauge misc See Rx Instructions .Route Qty: 100 0RF Rx Instructions: As directed, to test glucose level once daily diazepam 2 mg tablet 2 mg PO ONCE PRN (Reason: anxiety) Qty: 2 0RF Rx Instructions: 1 tab 30 min prior to MRI, can use second if needed fluticasone propionate 50 mcg/actuation spray,suspension 1 spray intranasal BID Qty: 16 3RF omeprazole 20 mg capsule,delayed release(DR/EC) 20 mg PO DAILY Qty: 90 3RF Zyrtec 10 mg capsule 10 mg PO DAILY PRN (Reason: allergic symptoms) Qty: 30 3RF azelastine 137 mcg (0.1 %) spray,non-aerosol 2 spray intranasal BID Qty: 30 0RF dextroamphetamine-amphetamine 15 mg capsule,extended release 24hr 1 cap PO DAILY Referrals: Poornima Mcgrath MD [Primary Care Provider, Family Practice] Stand Alone Forms: Patient Portal/API
[2025-02-22 02:27] LABS: Add Manual Diff / Slide Review NO; Hematocrit 43.1 % (36-46); Hemoglobin 14.7 g/dL (12.0-16.0); Lymphocytes Absolute Auto 3400 /uL (1100-4500); Mean Corpuscular HGB Conc 34.1 % (30-36); Mean Corpuscular Hemoglobin 26.4 PG (26-34); Mean Corpuscular Volume 77.7 fL (80-100); Platelet Count 403 X10^3/uL (150-400)
[2025-02-22] MEDS: ALBUTEROL/IPRATROPIUM 3 ML AMPUL INH (02:35)
[2025-02-22 02:37] LABS: Alanine Aminotransferase 35 IU/L (<35); Albumin 4.5 g/dL (3.5-5.0); Albumin Globulin Ratio 1.6 (1.0-2.8); Alkaline Phosphatase 72 U/L (38-126); Blood Urea Nitrogen 14 mg/dL (7-17); Calcium 9.8 mg/dL (8.4-10.2); Carbon Dioxide 21 mmol/L (22-32); Chloride 106 mmol/L (98-107); Estimated Glomerular Filt Rate > 60 mL/min (>60); Globulin 2.8 g/dL (1.7-4.1); Glucose 99 mg/dL (70-99); HEMOLYSIS < 15 (0-50); Potassium 3.2 mmol/L (3.4-5.1); Sodium 137 mmol/L (137-145); Total Protein 7.3 g/dL (6.3-8.2)
[2025-02-22 02:38] VITALS: PULSE 90; RESP 18; O2SAT 100
[2025-02-22 02:49] LABS: NT-proBNP (BNP-Adult 18+) < 20 pg/mL (<125); Troponin I < 0.012 ng/mL (0.01-0.034)
[2025-02-22 03:32] LABS: Influenza A - CEPHEID Flu A NEGATIVE (NEGATIVE); Influenza B - CEPHEID Flu B NEGATIVE (NEGATIVE)
[2025-02-22 03:37] LABS: COVID-19 CEPHEID 4-PLEX PCR Negative (Negative)
[2025-02-22] MEDS: POTASSIUM CHLORIDE 20 MEQ/15 ML UDC 40 MEQ PO (04:29)
[2025-02-22] MEDS: ALBUTEROL HFA PREPACK 1 BOX MISC (04:29)
[2025-02-22 04:50] VITALS: BP 112/60; PULSE 85; RESP 18; O2SAT 96
== END 2025-02-22 04:52 | disposition home or self-care (01) ==
PROVIDERS: Emergency Provider Emergency Medicine; PCP Family Medicine
DX: R06.02 Shortness of breath (principal); E87.6 Hypokalemia
CPT/HCPCS: 36415; 71046; 80053; 83880; 84484; 85025; 85379; 87637; 94640; 99284